=== PATIENT | male | born 1970 | race Caucasian/White ===

== ENCOUNTER 2018-08-31 17:33 | Emergency (ER) | payer OTHER, SELFPAY | END 2018-08-31 18:05 | disposition home or self-care (01) | LOC: MADERS 17:33 | DX: S43.402A Unspecified sprain of left shoulder joint, initial encounter (principal); E11.9 Type 2 diabetes mellitus without complications; X58.XXXA Exposure to other specified factors, initial encounter | CPT/HCPCS: 99283 ==

== ENCOUNTER 2021-04-20 10:47 | Outpatient (CLI) | payer OTHER | END 2021-04-20 10:48 | disposition home or self-care (01) | LOC: MADLAB 10:47 | PROVIDERS: ATTEND Family Medicine | DX: M25.512 Pain in left shoulder (principal); G89.29 Other chronic pain; M19.012 Primary osteoarthritis, left shoulder ==

== ENCOUNTER 2022-08-30 12:42 | Outpatient (CLI) | payer OTHER | END 2022-08-30 12:43 | disposition home or self-care (01) | LOC: MADEKG 12:42 | PROVIDERS: ATTEND Family Medicine | DX: I45.9 Conduction disorder, unspecified (principal); R00.2 Palpitations | CPT/HCPCS: 93005; 93010 ==

== ENCOUNTER 2023-05-05 16:37 | Emergency (ER) | payer OTHER ==
[~2023-05-05 16:37] MED LIST: Iopamidol 370 76% 100 ML VIAL ONE
[2023-05-05] MEDS ORDERED: Sodium Chloride 0.9% 1,000 ML ONE ×3 (17:06→19:55)
[2023-05-05] MEDS ORDERED: Ondansetron PF 4 MG/2 ML Vial ONE (17:06)
[2023-05-05 17:31] LABS: #Basophils 0.1 thou/uL (0.0-0.2); #Eosinphils 0.1 thou/uL (0.0-0.7); #Lymphocytes 1.4 thou/uL (1.20-3.40); #Monocytes 0.4 thou/uL (0.11-0.59); #Neutrophils 9.8 thou/uL (1.40-6.50); %Basophils 0.6 % (0.0-1.0); %Eosinophils 0.9 % (0.0-10.0); %Lymphocytes 11.7 % (21.0-51.0); %Monocytes 3.2 % (0.0-10.0); %Neutrophils 83.6 % (42.0-75.0); Hemoglobin 15.8 g/dL (14.0-18.0); Mean Corpuscular HGB CONC 33.8 g/dL (32.0-36.0); Mean Corpuscular Hemoglobin 29.4 pg (27.0-31.0); Mean Corpuscular Volume 86.9 fl (78.0-98.0); Mean Platelet Volume 9.6 fL (7.4-10.4); Platelet Count 151 10x3/uL (130-400); RBC Distribution Width 13.7 % (11.5-14.5); Red Blood Cell (RBC) Count 5.37 mill/uL (4.70-6.10); White Blood Cell (WBC) Count 11.7 10x3/uL (4.8-10.8)
[2023-05-05] MEDS ORDERED: Morphine 4 MG/ML VIAL ONE (17:46)
[2023-05-05 17:52] LABS: ALT (SGPT) 225 U/L (8-55); AST (SGOT) 345 U/L (5-34); Albumin 4.2 g/dL (3.5-5.0); Alkaline Phosphatase 108 U/L (40-110); Anion Gap 19 mmol/L (10-20); BUN (Urea Nitrogen) 17 mg/dL (8.4-25.7); Bilirubin, Total 2.5 mg/dL (0.2-1.2); Calc. Creatinine Clearance 0 mL/min (70-130); Calcium 10.2 mg/dL (7.8-10.44); Carbon Dioxide 24 mmol/L (22-29); Chloride 99 mmol/L (98-107); Estimated GFR 105; Globulin 3.2 g/dL (2.4-3.5); Glucose 259 mg/dL (70-105); Lipase 285 U/L (8-78); Magnesium 1.9 mg/dL (1.6-2.6); Potassium 4.2 mmol/L (3.5-5.1); Protein, Total 7.4 g/dL (6.0-8.3); Sodium 138 mmol/L (136-145)
[2023-05-05] MEDS ORDERED: Acetaminophen 500 MG TAB ONE (18:24)
[2023-05-05 18:59] LABS: Acetaminophen Less than 10 mcg/mL (10.0-30.0); Alcohol Less than 10.0 mg/dL (Less than 10); Salicylate Less than 8.0 mg/dL (15.0-30.0)
[2023-05-05] MEDS ORDERED: Sodium Chloride 0.9% 100 ML ONE (19:02)
[2023-05-05] MEDS ORDERED: Piperacillin/Tazobactam 4.5 GM VIAL ONE (19:02)
[2023-05-05] MEDS ORDERED: Vancomycin 1 GM VIAL ONE (19:02)
[2023-05-05] MEDS ORDERED: Sodium Chloride 0.9% 250 ML 250 ML ONE (19:02)
[2023-05-05 19:25] LABS: Bilirubin Negative (Negative); Blood, Urine Negative (Negative); Glucose, Urine (Dipstick) 500 mg/dL (Negative); Ketone, Urine 15 mg/dL (Negative); Leukocyte Trace (Negative); Nitrite Negative (Negative); Protein, Urine (Dipstick) Negative (Neg-Trace); Specific Gravity, Urine 1.015 (1.005-1.030)
[2023-05-05 19:26] LABS: CAUTI Indications for Culture Dysuria,urgency,freq; Clarity Hazy (Clear)
[2023-05-05 19:30] LABS: Bacteria/HPF 1+ HPF (None Seen); RBC/HPF 0-3 HPF (0-3); Squamous Epithelial 0-3 HPF (0-3)
[2023-05-05 19:31] LABS: Amphetamine Not Detected (NotDetected); Barbiturates Screen Not Detected (NotDetected); Benzodiazepine Screen Not Detected (NotDetected); Cocaine Metabolite Screen Not Detected (NotDetected); Methadone Not Detected (NotDetected); Methamphetamine Not Detected (NotDetected); Opiate Screen Detected (NotDetected); Oxycodone Screen Not Detected (NotDetected); Phencyclidine (PCP) Not Detected (NotDetected); THC/Cannabinoid Screen Not Detected (NotDetected); Tricyclic Screen Not Detected (NotDetected); Urine Culture Reflex No No
[2023-05-05] MEDS ORDERED: Ketorolac Tromethamine 30 MG/ML VIAL ONE (19:54)
[2023-05-05 20:27] LABS: Lactic Acid 5.5 mmol/L (0.5-2.2)
== END 2023-05-05 20:24 | disposition short-term general hospital (02) ==
LOC: MADERS 16:37
DX: A41.9 Sepsis, unspecified organism (principal); E87.20 Acidosis, unspecified; E80.7 Disorder of bilirubin metabolism, unspecified; K85.90 Acute pancreatitis without necrosis or infection, unspecified; R74.01 Elevation of levels of liver transaminase levels; E78.00 Pure hypercholesterolemia, unspecified; E11.9 Type 2 diabetes mellitus without complications; Z79.84 Long term (current) use of oral hypoglycemic drugs; Z79.4 Long term (current) use of insulin
CPT/HCPCS: 36415; 71045; 74177; 80053; 80306; 80307; 81001; 83605; 83690; 83735; 83880; 84484; 85025; 87040; 93005; 96361; 96365; 96367; 96375; J1885; J2270; J2405; J2543; J3370; J7050; Q9967